=== PATIENT | male | born 1990 | race Caucasian/White ===

== ENCOUNTER 2016-12-01 15:23 | Inpatient (IN) | payer BC ==
[2016-12-01 15:48] VITALS: BMI 27.9
[2016-12-01] MEDS ORDERED: MAG HYDROX/AL HYDROX/SIMETH 30 ML UNIT-DOSE CUP PO PRN (18:33)
[2016-12-01] MEDS ORDERED: METHADONE HCL 10 MG TABLET (FOR DETOX USE ONLY) PO ONE ×2 (18:33→23:00)
[2016-12-01] MEDS ORDERED: diphenhydrAMINE HCL 50 MG CAPSULE PO PRN (18:33)
[2016-12-01] MEDS ORDERED: ACETAMINOPHEN 325 MG TABLET (FP) PO PRN (18:33)
[2016-12-01] MEDS ORDERED: IBUPROFEN 400 MG TABLET (FP) PO PRN (18:33)
[2016-12-01] MEDS ORDERED: MENTHOL/PHENOL 1 EACH UD MM PRN (18:33)
[2016-12-01] MEDS ORDERED: MAGNESIUM HYDROX 2400MG/30ML ORAL SUSPENSION 30 ML CUP PO PRN (18:33)
[2016-12-01] MEDS ORDERED: MAGNESIUM CITRATE 300 ML BOTTLE PO PRN (18:33)
[2016-12-01] MEDS ORDERED: guaiFENesin/D-METHORPHAN HB 10 ML UNIT-DOSE CUPS PO PRN (18:33)
[2016-12-01] MEDS ORDERED: P-EPHED 60MG/TRIPROLIDI 2.5MG TABLET PO PRN (18:33)
[2016-12-01] MEDS ORDERED: LOPERAMIDE HCL 2 MG CAPSULE PO PRN (18:33)
--- NOTE | 2016-12-01 18:48 | HP ---
COWS - Scale Resting Pulse: 0= [place] 80 or Below Sweatin= Chills/Flushing Restless Observation: 1= Difficult to Sit Still Pupil Size: 1= Pupils >than Normal Bone or Joint Aches: 1= Mild Discomfort Runny Nose/ Eye Tearin= Nasal Congestion GI Upset > 30mins: 2= Nausea/Diarrhea Tremor Observation: 2= Slight Tremor Visible Yawning Observation: 1= 1-2x During Session Anxiety or Irritability: 2=Irritable/Anxious Goose Flesh Skin: 3=Piloerection COWS Score: 15 Admission ROS S - HPI Chief Complaint: wishes to detoxify from percocet so he can go to work without withdrwal sx Allergies/Adverse Reactions: Allergies Allergy/AdvReac Type Severity Reaction Status Date / Time No Known Allergies Allergy Verified 12/01/16 15:57 History of Present Illness: 26 yyo m with opioid use disorder, started after injury to back when age 23, has never been in treatment or detox before. PMHX ADD, not taking medications as prescribed bypsychiatrist at this time. Last used percocet today, does not use other drugs. smokes <10 cigs/day. no h/o seizures, alcohol use or DTS. never been hospitalized before Exam Limitations: No Limitations - Ebola screening Have you traveled outside of the country in the last 21 days: No Have you had contact with anyone from an Ebola affected area: No Have you been sick,other than usual withdrawal symptoms: No Do you have a fever: No - Review of Systems Constitutional: Chills, Diaphoresis, Loss of Appetite (when he is in withdrawal) , Malaise, Changes in sleep, Weakness, Weight Stable EENT: reports: Nose Congestion Respiratory: reports: No Symptoms reported Cardiac: reports: No Symptoms Reported GI: reports: Nausea, Poor Appetite, Poor Fluid Intake, Abdominal cramping : reports: No Symptoms Reported Musculoskeletal: reports: Back Pain, Joint Pain, Muscle Pain (from withdrawal in previous injury to leg) Integumentary: reports: Flushing, Sweating Neuro: reports: No Symptoms reported Endocrine: reports: No Symptoms Reported Hematology: reports: No Symptoms Reported Psychiatric: reports: Judgement Intact, Mood/Affect Appropiate, Orientated x3, Agitated, Anxious, Depressed Other Systems: Reviewed and Negative Patient History - Patient Medical History Hx Anemia: No Hx Asthma: No Hx Chronic Obstructive Pulmonary Disease (COPD): No Hx Cancer: No Hx Cardiac Disorders: No Hx Congestive Heart Failure: No Hx Hypertension: No Hx Hypercholesterolemia: No Hx Pacemaker: No HX Cerebrovascular Accident: No Hx Seizures: No Hx Dementia: No Hx Diabetes: No Hx Gastrointestinal Disorders: No Hx Liver Disease: No Hx Genitourinary Disorders: No Hx Sexually Transmitted Disorders: No Hx Renal Disease (ESRD): No Hx Thyroid Disease: No Hx Human Immunodeficiency Virus (HIV): No Hx Hepatitis C: No (neg test) Hx Depression: No Hx Suicide Attempt: No Hx Bipolar Disorder: No Hx Schizophrenia: No - Patient Surgical History Past Surgical History: No - PPD History Previous Implant?: Yes Documented Results: Negative w/o proof Implanted On Prior [facility] Admission?: No PPD to be Administered?: Yes - Reproductive History Patient is a Female of Child Bearing Age (11 -55 yrs old): No Patient : No - Smoking Cessation Smoking history: Current every day smoker Have you smoked in the past 12 months: Yes Aproximately how many cigarettes per day: 10 Hx Chewing Tobacco Use: No Initiated information on smoking cessation: Yes 'Breaking Loose' booklet given: 12/01/16 - Substance & Tx. History Hx Alcohol Use: No Hx Substance Use: Yes Substance Use Type: Prescribed Hx Substance Use Treatment: No - Substances Abused percocet Route: Oral Frequency: Daily Amount used: 90-100mg Age of first use: 22 Date of Last Use: 12/01/16 roxycodone Route: Oral Frequency: Daily Amount used: 3-4 pills Age of first use: 22 Date of Last Use: 12/01/16 Family Disease History - Family Disease History Family Disease History: Other: Father (alcoholism) Admission Physical Exam [facility] - Vital Signs Vital Signs: Vital Signs - 24 hr 12/01/16 12/01/16 15:46 17:51 Temperature 97.6 F 98.0 F Pulse Rate 62 74 Respiratory 18 20 Rate Blood Pressure 131/73 108/60 - Physical General Appearance: Yes: No Apparent Distress, Nourished, Appropriately Dressed , Mild Distress, Sweating, Anxious HEENTM: Yes: EOMI, Hearing grossly Normal, Normal ENT Inspection, Normocephalic , Normal Voice, CHI, Pharynx Normal, Rhinorrhea Respiratory: Yes: Within Normal Limits, Chest Non-Tender, Lungs Clear, Normal Breath Sounds, No Respiratory Distress, No Accessory Muscle Use Neck: Yes: Within Normal Limits, No masses,lesions,Nodules, Supple, Trachea in good position Breast: Yes: Breast Exam Deferred Cardiology: Yes: Within Normal Limits, Regular Rhythm, Regular Rate, S1, S2 Abdominal: Yes: Normal Bowel Sounds, Non Tender, Flat, Soft, Increased Bowel Sounds Genitourinary: Yes: Within Normal Limits Back: Yes: Within Normal Limits, Normal Inspection Musculoskeletal: Yes: Within Normal Limits, full range of Motion, Gait Steady, Pelvis Stable Extremities: Yes: Within Normal Limits, Normal Capillary Refill, Normal Inspection, Normal Range of Motion, Non-Tender 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, Fully Oriented, Alert, Motor Strength 5/5, Normal Mood/Affect, Normal Response, Respond to painful stimul, Other ( anxious) Integumentary: Yes: Normal Color, Dry, Warm Lymphatic: Yes: Within Normal Limits - Addiitonal Findings: early opioid withdrawal sx - Diagnostic (1) ADD (attention deficit disorder) Current Visit: Yes Status: Acute (2) Nicotine dependence Current Visit: Yes Status: Acute (3) Opioid dependence with withdrawal Current Visit: Yes Status: Acute Cleared for Admission [facility] - Detox or Rehab [facility] Level of Care: Medically Managed Detox Regimen/Protocol: Methadone [facility] Breath Alcohol Content Breath Alcohol Content: 0 Urine Drug Screen - Results Drug Screen Negative: No Urine Drug Screen Results: OPI-Opiates, OXY-Oxycodone
[2016-12-01] MEDS: diazePAM 5 MG TABLET PO PRN (19:33)
[2016-12-01] MEDS: NICOTINE 14 MG/24 HOURS TOPICAL PATCH TD SCH (19:34)
[2016-12-01] MEDS: NICOTINE POLACRILEX 2 MG GUM BC PRN ×2 (19:35→22:51)
[2016-12-01] MEDS: THIAMINE HCL 100 MG TABLET (FP) PO SCH (22:30)
[2016-12-01] MEDS: hydrOXYzine PAMOATE 50 MG CAPSULE (FP) PO PRN (22:32)
[2016-12-02] MEDS: diazePAM 5 MG TABLET PO PRN ×3 (08:50→21:03)
[2016-12-02] MEDS ORDERED: METHADONE HCL 10 MG TABLET (FOR DETOX USE ONLY) PO ONE (10:00)
[2016-12-02] MEDS: NICOTINE POLACRILEX 2 MG GUM BC PRN ×2 (10:24→15:34)
[2016-12-02] MEDS: NICOTINE 14 MG/24 HOURS TOPICAL PATCH TD SCH (10:24)
[2016-12-02] MEDS: PRENATAL VITAMINS W/ FOLIC ACID TABLET (FP) PO SCH (10:24)
[2016-12-02 10:34] LABS: MCH 29.6 pg (25.7-33.7); MCHC 33.4 g/dl (32.0-35.9); MEAN CELL VOLUME 88.7 fl (80-96); MEAN PLT VOLUME 9.2 fl (7.5-11.1); PLATELET COUNT 201 K/MM3 (134-434); RDW 12.9 % (11.9-15.9); WHITE BLOOD COUNT 9.2 K/mm3 (4.0-10.0)
[2016-12-02 11:04] LABS: ALBUMIN 3.7 g/dl (3.4-5.0); ALK PHOS 46 U/L (45-117); ANION GAP 8 (8-16); BILIRUBIN,TOTAL 0.6 mg/dL (0.2-1.0); CO2 29 mmol/L (21-32); CREATININE 0.9 mg/dL (0.7-1.3); GLUCOSE,RANDOM 87 mg/dL (74-106); SGOT/AST 35 U/L (15-37); SGPT/ALT 27 U/L (12-78); TOT PROT 6.3 g/dl (6.4-8.2)
[2016-12-02 13:32] LABS: SICKLE CELL SCREEN NEGATIVE (NEGATIVE)
--- NOTE | 2016-12-02 13:57 | EKG ---
Test Reason : Blood Pressure : / mmHG Vent. Rate : 079 BPM Atrial Rate : 079 BPM P-R Int : 168 ms QRS Dur : 086 ms QT Int : 366 ms P-R-T Axes : 043 065 049 degrees QTc Int : 419 ms NORMAL SINUS RHYTHM RSR' OR QR PATTERN IN V1 SUGGESTS RIGHT VENTRICULAR CONDUCTION DELAY NO PREVIOUS ECGS AVAILABLE REPEAT EKG IF CLINICALLY INDICATED Confirmed by NICHELLE HUDSON MD ([id number]) on 12/02/2016 1:57:12 PM Referred By: Confirmed By:NICHELLE HUDSON MD
--- NOTE | 2016-12-02 16:22 | PN ---
[facility]HS COWS - Scale Resting Pulse: 0= [place] 80 or Below Sweatin=Flushed/Facial Moisture Restless Observation: 1= Difficult to Sit Still Pupil Size: 0= Normal to Room Light Bone or Joint Aches: 2= Severe Diffuse Aches Runny Nose/ Eye Tearin= Runny Nose/Eyes GI Upset > 30mins: 1= Stomach Cramp Tremor Observation of Outstretched Hands: 2= Slight Tremor Visible Yawning Observation: 1= 1-2x During Session Anxiety or Irritability: 2=Irritable/Anxious Goose Flesh Skin: 3=Piloerection COWS Score: 16 BHS Progress Note (SOAP) Subjective: Fatigue, Tremors, Sweating. Objective: PT. A & O X 3, OBSERVED AMBULATING ON UNIT. NO ACUTE DISTRESS. 12/02/16 16:21 Vital Signs Temperature 98.1 F 12/02/16 14:50 Pulse Rate 60 12/02/16 14:50 Respiratory Rate 18 12/02/16 14:50 Blood Pressure 139/81 12/02/16 14:50 O2 Sat by Pulse Oximetry (%) Laboratory Tests 12/02/16 12/02/16 12/02/16 07:00 07:00 07:00 WBC 9.2 RBC 4.82 Hgb 14.3 Hct 42.8 MCV 88.7 MCH 29.6 MCHC 33.4 RDW 12.9 Plt Count 201 MPV 9.2 Sickle Cell Screen Negative Sodium 142 Potassium 4.2 Chloride 105 Carbon Dioxide 29 Anion Gap 8 BUN 13 Creatinine 0.9 Creat Clearance w eGFR > 60 Random Glucose 87 Calcium 9.0 Total Bilirubin 0.6 AST 35 ALT 27 Alkaline Phosphatase 46 Total Protein 6.3 L Albumin 3.7 RPR Titer Nonreactive LABS NOTED. HCV ANTIBODY RESULT PENDING. 12/02/16 16:22 Assessment: 12/02/16 16:21 WITHDRAWAL SYMPTOMS. Plan: CONTINUE DETOX.
[2016-12-02] MEDS: THIAMINE HCL 100 MG TABLET (FP) PO SCH (22:37)
[2016-12-02] MEDS: hydrOXYzine PAMOATE 50 MG CAPSULE (FP) PO PRN (22:40)
[2016-12-03] MEDS: diazePAM 5 MG TABLET PO PRN ×4 (06:08→22:26)
[2016-12-03] MEDS ORDERED: METHADONE HCL 5 MG TABLET (FOR DETOX USE ONLY) PO ONE (10:00)
[2016-12-03] MEDS: PRENATAL VITAMINS W/ FOLIC ACID TABLET (FP) PO SCH (10:11)
[2016-12-03] MEDS: NICOTINE 14 MG/24 HOURS TOPICAL PATCH TD SCH (10:11)
--- NOTE | 2016-12-03 10:28 | CONSULT ---
[facility] Psychiatric Consult - Data Date of interview: 12/03/16 Admission source: [facility] Identifying data: This is 26 years old single male residing alone, supported himself as a medeiros,admitted for Opioid dependence. Substance Abuse History: Reports using Percoset 90-100 mg daily since 22 yo and Roxycodone 3-4 pills daily since 22 yo. Medical History: unremarkable Psychiatric History: Reports being dx with ADHD at school age,not on medications.Patient also c/o of anxiety on and off,sleeping difficulties specially while on withdrawal. Physical/Sexual Abuse/Trauma History: denies Mental Status Exam - Mental Status Exam Alert and Oriented to: Time, Place, Person Cognitive Function: Grossly Intact Patient Appearance: Well Groomed Mood: Anxious Affect: Mood Congruent, Labile Patient Behavior: Cooperative Speech Pattern: Clear Voice Loudness: Normal Thought Process: Goal Oriented Thought Disorder: Not Present Hallucinations: Denies Suicidal Ideation: Denies Homicidal Ideation: Denies Insight/Judgement: Fair Appetite: Fair Muscle strength/Tone: Normal Gait/Station: Normal Psychiatric Findings - Problem List ([place] 1, 2,3) (1) ADD (attention deficit disorder) Current Visit: Yes Status: Inactive (2) Nicotine dependence Current Visit: Yes Status: Chronic (3) Opioid dependence with withdrawal Current Visit: Yes Status: Chronic (4) Substance induced mood disorder Current Visit: Yes Status: Chronic - Initial Treatment Plan Initial Treatment Plan: Ambien 10 mg po hs prn for insomnia. Will monitor progress.
[2016-12-03] MEDS ORDERED: ZOLPIDEM TARTRATE 10 MG TABLET (PARK CARE ONLY) PO PRN (10:30)
[2016-12-03] MEDS: NICOTINE POLACRILEX 2 MG GUM BC PRN ×3 (12:31→22:26)
--- NOTE | 2016-12-03 17:19 | PN ---
[facility] COWS - Scale Resting Pulse: 0= [place] 80 or Below Sweatin=Flushed/Facial Moisture Restless Observation: 1= Difficult to Sit Still Pupil Size: 0= Normal to Room Light Bone or Joint Aches: 2= Severe Diffuse Aches Runny Nose/ Eye Tearin= Runny Nose/Eyes GI Upset > 30mins: 1= Stomach Cramp Tremor Observation of Outstretched Hands: 2= Slight Tremor Visible Yawning Observation: 1= 1-2x During Session Anxiety or Irritability: 2=Irritable/Anxious Goose Flesh Skin: 0=Smooth Skin COWS Score: 13 BHS Progress Note (SOAP) Subjective: Sweating, H/A, Body Aches. Objective: PT. A & O X 3, OBSERVED AMBULATING ON UNIT. NO ACUTE DISTRESS. 12/03/16 17:17 Vital Signs Temperature 98.5 F 12/03/16 13:18 Pulse Rate 66 12/03/16 13:18 Respiratory Rate 18 12/03/16 13:18 Blood Pressure 125/71 12/03/16 13:18 O2 Sat by Pulse Oximetry (%) Laboratory Tests 12/02/16 12/02/16 12/02/16 07:00 07:00 07:00 WBC 9.2 RBC 4.82 Hgb 14.3 Hct 42.8 MCV 88.7 MCH 29.6 MCHC 33.4 RDW 12.9 Plt Count 201 MPV 9.2 Sickle Cell Screen Negative Sodium 142 Potassium 4.2 Chloride 105 Carbon Dioxide 29 Anion Gap 8 BUN 13 Creatinine 0.9 Creat Clearance w eGFR > 60 Random Glucose 87 Calcium 9.0 Total Bilirubin 0.6 AST 35 ALT 27 Alkaline Phosphatase 46 Total Protein 6.3 L Albumin 3.7 RPR Titer Nonreactive LABS NOTED. HCV ANTIBODY, UA RESULTS PENDING. 12/03/16 17:18 12/03/16 17:19 Assessment: 12/03/16 17:17 WITHDRAWAL SYMPTOMS. Plan: CONTINUE DETOX.
[2016-12-03 18:37] LABS: URINE APPEARANCE CLEAR; URINE BILIRUBIN NEGATIVE (NEGATIVE); URINE BLOOD 2+ (NEGATIVE); URINE COLOR STRAW; URINE GLUCOSE (UA) NEGATIVE (NEGATIVE); URINE KETONE NEGATIVE (NEGATIVE); URINE LEUK ESTERASE NEGATIVE (NEGATIVE); URINE NITRITE NEGATIVE (NEGATIVE); URINE PROTEIN NEGATIVE (NEGATIVE); URINE UROBILINOGEN NEGATIVE mg/dL (0.2-1.0)
[2016-12-03 18:47] LABS: URINE MUCUS RARE; URINE WBC <1 /hpf (3-5)
[2016-12-03] MEDS: hydrOXYzine PAMOATE 50 MG CAPSULE (FP) PO PRN (20:09)
[2016-12-03] MEDS: THIAMINE HCL 100 MG TABLET (FP) PO SCH (22:26)
[2016-12-04] MEDS: diazePAM 5 MG TABLET PO PRN (05:41)
[2016-12-04 06:38] VITALS: BP 120/64; TEMP 98.1
[2016-12-04 06:46] VITALS: PULSE 70
[2016-12-04] MEDS ORDERED: METHADONE HCL 5 MG TABLET (FOR DETOX USE ONLY) PO ONE (10:00)
--- NOTE | 2016-12-04 10:34 | DS ---
[facility] Detox Discharge Summary Admission Date: 12/01/16 Discharge Date: 12/04/16 - History Present History: Opioid Dependence Additional Comments: PATIENT DOES NOT WISH TO STAY TO COMPLETE DETOX REGIMEN. PATIENT REPORTS THAT HE HAS SUBOXONE AT HOME THAT HE WILL TAKE AFTER LEAVING DETOX UNIT, BUT THAT HE IS NOT CURRENTLY UNDER THE CARE OF A MEDICAL PROVIDER FOR THE SUBOXONE. PATIENT EDUCATED ABOUT RISKS OF LEAVING DETOX UNIT AMA AND ADVISED TO CONSULT WITH A QUALIFIED MEDICAL PROVIDER PRIOR TO RESUMING TAKING SUBOXONE. LIST OF CERTIFIED SUBOXONE MEDICAL PROVIDERS IN [facility] OFFERED TO PATIENT, BUT PATIENT DECLINED TO TAKE IT. PATIENT ADVISED TO GO IMMEDIATELY TO NEAREST ER SHOULD ANY INTOLERABLE DETOX SYMPTOMS OCCUR AT ANY TIME. PATIENT LEFT UNIT IN STABLE MEDICAL CONDITION. Pertinent Past History: ADD. - Physical Exam Results Vital Signs: Vital Signs Temperature 98.1 F 12/04/16 06:37 Pulse Rate 70 12/04/16 06:37 Respiratory Rate 16 12/04/16 06:37 Blood Pressure 120/64 12/04/16 06:37 O2 Sat by Pulse Oximetry (%) Pertinent Admission Physical Exam Findings: WITHDRAWAL SYMPTOMS. Laboratory Tests 12/02/16 12/02/16 12/02/16 07:00 07:00 07:00 WBC 9.2 RBC 4.82 Hgb 14.3 Hct 42.8 MCV 88.7 MCH 29.6 MCHC 33.4 RDW 12.9 Plt Count 201 MPV 9.2 Sickle Cell Screen Negative Sodium 142 Potassium 4.2 Chloride 105 Carbon Dioxide 29 Anion Gap 8 BUN 13 Creatinine 0.9 Creat Clearance w eGFR > 60 Random Glucose 87 Calcium 9.0 Total Bilirubin 0.6 AST 35 ALT 27 Alkaline Phosphatase 46 Total Protein 6.3 L Albumin 3.7 Urine Color Urine Appearance Urine pH Ur Specific [place] Urine Protein Urine Glucose (UA) Urine Ketones Urine Blood Urine Nitrite Urine Bilirubin Urine Urobilinogen Ur Leukocyte Esterase Urine RBC Urine WBC Urine Mucus RPR Titer Nonreactive 12/03/16 12:41 WBC RBC Hgb Hct MCV MCH MCHC RDW Plt Count MPV Sickle Cell Screen Sodium Potassium Chloride Carbon Dioxide Anion Gap BUN Creatinine Creat Clearance w eGFR Random Glucose Calcium Total Bilirubin AST ALT Alkaline Phosphatase Total Protein Albumin Urine Color Straw Urine Appearance Clear Urine pH 8.0 Ur Specific [place] 1.010 Urine Protein Negative Urine Glucose (UA) Negative Urine Ketones Negative Urine Blood 2+ H Urine Nitrite Negative Urine Bilirubin Negative Urine Urobilinogen Negative Ur Leukocyte Esterase Negative Urine RBC None Urine WBC <1 Urine Mucus Rare RPR Titer LABS NOTED. - Treatment Hospital Course: Detoxed Safely - Diagnosis (1) Nicotine dependence Status: Chronic Qualifiers: Nicotine product type: cigarettes Substance use status: uncomplicated Qualified Code(s): F17.210 - Nicotine dependence, cigarettes, uncomplicated (2) Opioid dependence with withdrawal Status: Acute (3) Substance induced mood disorder Status: Acute (4) ADD (attention deficit disorder) Status: Inactive - AMA Did Patient Leave Against Medical Advice: Yes (PATIENT DID NOT WISH TO STAY TO COMPLETE DETOX REGIMEN.)
[2016-12-05] MEDS ORDERED: METHADONE HCL 10 MG TABLET (FOR DETOX USE ONLY) PO ONE (10:00)
[2016-12-06] MEDS ORDERED: METHADONE HCL 5 MG TABLET (FOR DETOX USE ONLY) PO ONE (06:00)
== END 2016-12-04 08:30 | disposition left against medical advice (07) | DRG 770 ==
LOC: YASAS 15:23 → Y3N 16:20
PROVIDERS: ADMIT Internal Medicine Addiction Medicine; ATTEND Internal Medicine Addiction Medicine
PROC: HZ2ZZZZ Detoxification Services for Substance Abuse Treatment (ICD-10-PCS; principal; 2016-12-01)
DX: F11.23 Opioid dependence with withdrawal (principal); F17.210 Nicotine dependence, cigarettes, uncomplicated; F19.24 Other psychoactive substance dependence with psychoactive substance-induced mood disorder; F98.8 Other specified behavioral and emotional disorders with onset usually occurring in childhood and adolescence
CPT/HCPCS: 36415; 80053; 81003; 81015; 85027; 85660; 86593; 86803; 93005; 93010